=== PATIENT | female | born 1975 | race Caucasian/White ===

== ENCOUNTER → 2016-11-26 | Outpatient (CLI) | payer BC ==
--- NOTE | 2016-11-29 09:56 | MM ---
Reason for exam: screening (asymptomatic). Last mammogram was performed 1 year and 3 months ago. History: Took hormonal contraceptives for 2 years. Physical Findings: A clinical breast exam by your physician is recommended on an annual basis and results should be correlated with mammographic findings. MG Screening Mammo w CAD Bilateral CC and MLO view(s) were taken. Prior study comparison: August 25, 2015, bilateral MG screening mammo w CAD. March 26, 2014, left breast MG diagnostic mammo LT w CAD. The breast tissue is heterogeneously dense. This may lower the sensitivity of mammography. No significant changes when compared with prior studies. ASSESSMENT: Negative, BI-RAD 1 RECOMMENDATION: Routine screening mammogram of both breasts in 1 year.
== END ==
LOC: RADMAMWWP 14:44
PROVIDERS: ATTEND Family Medicine
DX: Z12.31 Encounter for screening mammogram for malignant neoplasm of breast (principal)

== ENCOUNTER → 2017-07-18 | Outpatient (CLI) | payer BC ==
--- NOTE | 2017-07-18 14:22 | XR ---
EXAMINATION TYPE: XR lumbosacral spine min 4V DATE OF EXAM: 07/18/2017 COMPARISON: NONE HISTORY: 42-year-old female low back pain, left leg pain TECHNIQUE: 5 views FINDINGS: Transitional lumbosacral segment which will be denoted as a sacralized L5. Hypertrophic facet arthrop athy lower lumbar spine. One anterolisthesis at L4-L5. Vertebral body heights are preserved. No pars interarticularis defect. IMPRESSION: 1. Transitional lumbosacral segment. This is denoted as a sacralized L5. 2. Hypertrophic facet arthropathy lower lumbar spine with grade 1 anterolisthesis at L4-L5.
== END | disposition home or self-care (01) ==
LOC: RADXRYALE 10:35
PROVIDERS: ATTEND Physician Assistant Medical
DX: M43.16 Spondylolisthesis, lumbar region (principal); M46.86 Other specified inflammatory spondylopathies, lumbar region
CPT/HCPCS: 72110

== ENCOUNTER → 2018-07-03 | Outpatient (CLI) | payer BC ==
--- NOTE | 2018-07-03 13:52 | MM ---
Reason for exam: screening (asymptomatic). Last mammogram was performed 1 year and 7 months ago. History: Took hormonal contraceptives for 2 years. Physical Findings: A clinical breast exam by your physician is recommended on an annual basis and results should be correlated with mammographic findings. MG Screening Mammo w CAD Bilateral CC and MLO view(s) were taken. Prior study comparison: November 26, 2016, bilateral MG screening mammo w CAD. August 25, 2015, bilateral MG screening mammo w CAD. The breast tissue is heterogeneously dense. This may lower the sensitivity of mammography. There is no discrete abnormality. No significant changes when compared with prior studies. ASSESSMENT: Benign, BI-RAD 2 RECOMMENDATION: Routine screening mammogram of both breasts in 1 year.
== END ==
LOC: RADMAMWWP 08:56
PROVIDERS: ATTEND Family Medicine
DX: Z12.31 Encounter for screening mammogram for malignant neoplasm of breast (principal)
CPT/HCPCS: 77067

== ENCOUNTER → 2020-08-01 | Outpatient (CLI) | payer BC ==
--- NOTE | 2020-08-05 11:51 | MM ---
Reason for exam: screening (asymptomatic). Last mammogram was performed 2 years and 1 month ago. History: Took hormonal contraceptives for 2 years. Physical Findings: A clinical breast exam by your physician is recommended on an annual basis and results should be correlated with mammographic findings. MG 3D Screening Mammo W/Cad Bilateral CC and MLO view(s) were taken. Prior study comparison: July 03, 2018, bilateral MG screening mammo w CAD. November 26, 2016, bilateral MG screening mammo w CAD. The breast tissue is heterogeneously dense. This may lower the sensitivity of mammography. No significant changes when compared with prior studies. ASSESSMENT: Benign, BI-RAD 2 RECOMMENDATION: Routine screening mammogram of both breasts in 1 year.
== END | disposition home or self-care (01) ==
LOC: RADMAMWWP 15:33
PROVIDERS: ATTEND Family Medicine
DX: Z12.31 Encounter for screening mammogram for malignant neoplasm of breast (principal)
CPT/HCPCS: 77063; 77067

== ENCOUNTER → 2021-08-12 | Outpatient (CLI) | payer BC ==
--- NOTE | 2021-08-13 09:45 | MM ---
Reason for exam: screening (asymptomatic). Last mammogram was performed 1 year ago. History: Took hormonal contraceptives for 2 years. Physical Findings: A clinical breast exam by your physician is recommended on an annual basis and results should be correlated with mammographic findings. MG 3D Screening Mammo W/Cad Bilateral CC and MLO view(s) were taken. Prior study comparison: August 01, 2020, bilateral MG 3d screening mammo w/cad. July 03, 2018, bilateral MG screening mammo w CAD. The breast tissue is heterogeneously dense. This may lower the sensitivity of mammography. There is no discrete abnormality. No significant changes when compared with prior studies. ASSESSMENT: Negative, BI-RAD 1 RECOMMENDATION: Routine screening mammogram of both breasts in 1 year.
== END | disposition home or self-care (01) ==
LOC: RADMAMWWP 15:52
PROVIDERS: ATTEND Family Medicine
DX: Z12.31 Encounter for screening mammogram for malignant neoplasm of breast (principal)
CPT/HCPCS: 77063; 77067

== ENCOUNTER → 2022-09-10 | Outpatient (CLI) | payer BC ==
--- NOTE | 2022-09-13 08:14 | MM ---
Reason for Exam: Screening (asymptomatic). Last mammogram was performed 1 year(s) and 1 month(s) ago. Patient History: Menarche at age 11. First Full-Term at age 22. Perimenopausal. Patient used Hormonal Contraceptives for 2 years. Risk Values: Courtney 5 year model risk: 0.8%. NCI Lifetime model risk: 8.3%. Prior Study Comparison: 07/03/2018 Bilateral Screening Mammogram, [facility]. 08/01/2020 Bilateral Screening Mammogram, [facility]. 08/12/2021 Bilateral Screening Mammogram, [facility]. Tissue Density: The breast tissue is heterogeneously dense. This may lower the sensitivity of mammography. Findings: Analyzed By CAD. There is no suspicious group of microcalcifications or new suspicious mass in either breast. Overall Assessment: Negative, BI-RAD 1 Management: Screening Mammogram of both breasts in 1 year. A clinical breast exam by your physician is recommended on an annual basis and results should be correlated with mammographic findings. [facility] will attempt to contact patient to return for supplemental views and ultrasound if indicated. Electronically signed and approved by: Brad Darden DO
== END | disposition home or self-care (01) ==
LOC: RADMAMWWP 14:45
PROVIDERS: ATTEND Obstetrics & Gynecology
DX: Z12.31 Encounter for screening mammogram for malignant neoplasm of breast (principal)
CPT/HCPCS: 77063; 77067

== ENCOUNTER → 2023-11-04 | Outpatient (CLI) | payer BC ==
--- NOTE | 2023-11-04 15:09 | MM ---
Reason for Exam: Screening (asymptomatic). Last mammogram was performed 1 year(s) and 2 month(s) ago. Patient History: Menarche at age 11. First Full-Term at age 22. Perimenopausal. Patient used Hormonal Contraceptives for 2 years. Last menstrual period: 11/03/2023 Risk Values: Courtney 5 year model risk: 0.8%. NCI Lifetime model risk: 8.2%. Prior Study Comparison: 08/01/2020 Bilateral Screening Mammogram, [facility]. 08/12/2021 Bilateral Screening Mammogram, [facility]. 09/10/2022 Bilateral MG 3D screening mammo w/cad, [facility]. Tissue Density: The breast tissue is extremely dense which could obscure a lesion on mammography. Findings: Analyzed By CAD. The pattern is symmetrical. No significant interval change. No suspicious groups of microcalcifications, spiculated or lobular masses, architectural distortion or other secondary signs of malignancy are mammographically apparent. Overall Assessment: Benign, BI-RAD 2 Management: Screening Mammogram of both breasts in 1 year. A negative mammogram report should not preclude additional follow up of suspicious palpable abnormalities. Patient should continue monthly self breast exam. A clinical breast exam by your physician is recommended on an annual basis and results should be correlated with mammographic findings. Electronically signed and approved by: Abdoul Walker D.O. Radiologis
== END | disposition home or self-care (01) ==
LOC: RADMAMWWP 08:40
PROVIDERS: ATTEND Family Medicine
DX: Z12.31 Encounter for screening mammogram for malignant neoplasm of breast (principal)
CPT/HCPCS: 77063; 77067

== ENCOUNTER → 2025-01-11 | Outpatient (CLI) | payer BC ==
--- NOTE | 2025-01-11 14:48 | MM ---
Reason for Exam: Screening (asymptomatic). Last mammogram was performed 1 year(s) and 2 month(s) ago. Patient History: Menarche at age 11. First Full-Term at age 22. Premenopausal. Patient used Hormonal Contraceptives for 2 years. Risk Values: Courtney 5 year model risk: 0.9%. NCI Lifetime model risk: 8.0%. Prior Study Comparison: 11/26/2016 Bilateral Screening Mammogram, [facility]. 07/03/2018 Bilateral Screening Mammogram, [facility]. 08/01/2020 Bilateral Screening Mammogram, [facility]. 08/12/2021 Bilateral Screening Mammogram, [facility]. 09/10/2022 Bilateral MG 3D screening mammo w/cad, [facility]. 11/04/2023 Bilateral MG 3D screening mammo w/cad, [facility]. Tissue Density: The breasts are heterogeneously dense, which may obscure small masses. Findings: Analyzed By CAD. Right breast: There is no suspicious group of microcalcifications or new suspicious mass. Left breast: There is no suspicious group of microcalcifications or new suspicious mass. Overall Assessment: Negative, BI-RAD 1 Management: Screening Mammogram of both breasts in [address] [facility] will attempt to contact patient to return for supplemental views and ultrasound if indicated. Patient should continue monthly self-breast exams. A clinical breast exam by your physician is recommended on an annual basis. This exam should not preclude additional follow-up of suspicious palpable abnormalities. Note on Courtney scores and lifetime risk: 1. A Courtney score greater than 3% is considered moderate risk. If this is the case, consider specialist referral to assess eligibility for a risk reducing agent. 2. If overall lifetime risk for the development of breast cancer is 20% or higher, the patient may qualify for future screening with alternating mammogram and breast MRI. [facility], , 01/11/2025 2:45 PM. Electronically signed and approved by: Brad Darden DO
== END | disposition home or self-care (01) ==
LOC: RADMAMWWP 12:51
PROVIDERS: ATTEND Family Medicine
DX: Z12.31 Encounter for screening mammogram for malignant neoplasm of breast (principal); R92.333 Mammographic heterogeneous density, bilateral breasts; Z92.0 Personal history of contraception
CPT/HCPCS: 77063; 77067

== ENCOUNTER → 2025-03-26 | Outpatient (CLI) | payer BC ==
--- NOTE | 2025-03-27 00:50 | XR ---
EXAMINATION TYPE: XR knee complete RT DATE OF EXAM: 03/26/2025 5:05 PM COMPARISON: None. CLINICAL INDICATION: Female, 49 years old with history of [id number] RT KNEE PAIN, pain TECHNIQUE: 3 view(s) obtained. FINDINGS: There is narrowing of the medial and lateral compartment joint spaces. This is greater in the medial compartment. Some tibial plateau compression may be present. Additional imaging can be performed for sufficient clinical suspicion. Medial tibial plateau femoral condylar spurring is present. No joint e ffusion is evident. Patellofemoral joint space is preserved. IMPRESSION: 1. There may be some depression of the medial tibial plateau compared to the lateral tibial plateau. This could be due to some compression fracture of the tibial plateau or chronic degenerative changes . CT can be performed as clinically indicated. [facility], Workstation: [id number], 03/27/2025 12:48 AM
== END | disposition home or self-care (01) ==
LOC: RADXRYALE 16:49
PROVIDERS: ATTEND Family Medicine
DX: M25.561 Pain in right knee (principal)